=== PATIENT | female | born 1980 | race Caucasian/White ===

== ENCOUNTER 2017-08-17 08:40 | Day surgery (SDC) | payer MEDICAID ==
[~2017-08-17] VITALS: Ht 172.7 cm; Wt 68.0 kg
[2017-08-17 08:50] LABS: HCG,QUAL RESULT NEGATIVE (NEGATIVE)
[2017-08-17] MEDS ORDERED: LIDOCAINE/EPI 1% 1:100000 20 ML VIAL INJ ONE (10:31)
[2017-08-17] MEDS ORDERED: OXYMETAZOLINE HCL 0.05% NASAL SPRAY NS ONE (10:31)
[2017-08-17] MEDS ORDERED: PROPOFOL 200MG/ 20ML VIAL (DIPRIVAN) IV ONE (10:31)
[2017-08-17] MEDS ORDERED: fentaNYL CITRATE 250 MCG/5 ML AMP IV ONE (10:31)
[2017-08-17] MEDS ORDERED: DEXAMETHASONE SOD PHOSPHATE 4 MG/ML VIAL IVP ONE (10:31)
[2017-08-17] MEDS ORDERED: SUCCINYLCHOLINE CHLORIDE 20 MG/ML(QUELICIN) IVP ONE (10:31)
[2017-08-17] MEDS ORDERED: ROCURONIUM BROMIDE 10 MG/ML (ZEMURON) IV ONE (10:31)
[2017-08-17] MEDS ORDERED: SEVOFLURANE 15 MIN GAS INH ONE (10:31)
[2017-08-17] MEDS ORDERED: NEOSTIGMINE METHYLSULFATE 1 MG/ML, 10 ML VIAL IVP ONE (10:31)
[2017-08-17] MEDS ORDERED: MIDAZOLAM HCL 5 MG/5 ML VIAL IVP ONE (10:31)
[2017-08-17] MEDS ORDERED: NS 1000 ML BAG IV ONE (10:31)
[2017-08-17] MEDS ORDERED: GLYCOPYRROLATE 0.2 MG/ML VIAL IJ ONE (10:31)
[2017-08-17] MEDS ORDERED: ONDANSETRON HCL 4 MG/2 ML VIAL IVP ONE (10:31)
[2017-08-17] MEDS ORDERED: NS IRRIG SOLN 1000 ML IR ONE (10:31)
[2017-08-17] MEDS ORDERED: WATER FOR IRRIGATION,STERILE 1,000 ML IRRIG.SOLN IR ONE (10:31)
[2017-08-17] MEDS ORDERED: EPINEPHrine 1 MG/ML AMP IV ONE (10:31)
[2017-08-17] MEDS ORDERED: LR 1,000 ML IV SCH (11:31)
[2017-08-17] MEDS ORDERED: MORPHINE 4 MG/ML INJ. SYRINGE IVP PRN ×3 (11:45)
[2017-08-17] MEDS ORDERED: METOCLOPRAMIDE HCL 10 MG/2 ML VIAL IVP PRN (11:45)
[2017-08-17] MEDS ORDERED: MORPHINE 4 MG/ML INJ. SYRINGE ONE (13:17)
[2017-08-17 14:01] VITALS: BP_SYST 126
== END 2017-08-17 14:55 | disposition home or self-care (01) ==
LOC: SMU 08:40 → SDS 08:40
PROVIDERS: ATTEND Otolaryngology
DX: J34.2 Deviated nasal septum (principal); J32.9 Chronic sinusitis, unspecified
CPT/HCPCS: 30520; 31255; 31295; 31297; 84703; 88305; 88311; C1726; J0171; J0330; J1100; J2250; J2270; J2405; J2704; J2710; J3010; J3490; J7030; J7120

== ENCOUNTER 2019-02-07 06:30 | Day surgery (SDC) | payer MEDICAID ==
[~2019-02-07] VITALS: Ht 172.7 cm; Wt 72.6 kg
[2019-02-07 07:02] LABS: HCG,QUAL RESULT NEGATIVE (NEGATIVE)
[2019-02-07] MEDS ORDERED: fentaNYL CITRATE/PF 100 MCG/2 ML AMP IVP PRN ×2 (08:30)
[2019-02-07] MEDS ORDERED: ONDANSETRON HCL 4 MG/2 ML VIAL IVP PRN (08:30)
[2019-02-07] MEDS ORDERED: SEVOFLURANE 15 MIN GAS INH ONE (08:46)
[2019-02-07] MEDS ORDERED: PROPOFOL 200MG/ 20ML VIAL (DIPRIVAN) IV ONE (08:46)
[2019-02-07] MEDS ORDERED: fentaNYL CITRATE/PF 100 MCG/2 ML AMP IVP ONE (08:46)
[2019-02-07] MEDS ORDERED: NEOSTIGMINE METHYLSULFATE 1 MG/ML, 10 ML VIAL IVP ONE (08:46)
[2019-02-07] MEDS ORDERED: LR 1,000 ML IV.SOLN IV ONE (08:46)
[2019-02-07] MEDS ORDERED: GLYCOPYRROLATE 0.2 MG/ML VIAL IJ ONE (08:46)
[2019-02-07] MEDS ORDERED: ROCURONIUM BROMIDE 10 MG/ML (ZEMURON) IV ONE (08:46)
[2019-02-07] MEDS ORDERED: MIDAZOLAM HCL 5 MG/5 ML VIAL IVP ONE (08:46)
[2019-02-07] MEDS: fentaNYL CITRATE/PF 100 MCG/2 ML AMP ONE ×2 (10:50→11:15)
[2019-02-07] MEDS ORDERED: HYDROcodone/ACETAMIN 5-325 MG TAB (NORCO/ VICODIN) PO ONE (12:00)
[2019-02-07] MEDS ORDERED: HYDROcodone/ACETAMIN 5-325 MG TAB (NORCO/ VICODIN) ONE (12:05)
[2019-02-07 16:09] VITALS: BP_SYST 120
== END 2019-02-07 13:40 | disposition home or self-care (01) ==
LOC: SDS 06:30 → SMU 06:30 → SDS 13:40
PROVIDERS: ATTEND Otolaryngology
DX: J32.9 Chronic sinusitis, unspecified (principal); J32.4 Chronic pansinusitis; Z80.9 Family history of malignant neoplasm, unspecified
CPT/HCPCS: 31295; 31296; 84703; 87070; 87075; 88305; 88311; A4649; C1726; J2250; J2704; J2710; J3010; J3490; J7120